=== PATIENT | female | born 1955 | race Caucasian/White ===

== ENCOUNTER 2017-03-01 13:59 | Emergency (ER) | payer BC, OTHER ==
--- NOTE | 2017-03-01 14:10 | Emergency Department Record ---
History of Present Illness - General Chief complaint: Rectal bleeding Stated complaint: RECTAL BLEEDING Time Seen by Provider: 03/01/17 14:02 Source: Patient, Family Mode of Arrival: Ambulatory Limitations: No limitations - History of Present Illness Initial comments: 61 yo female presents with a concern about blood in her stools the last 2 days in the morning. Each morning there has been blood after a bowel movement. She fevers, vomiting or pain. No blood thinners. No history of known GI bleed in the past. No nausea or vomiting. Her last colonoscopy was during her mid 50's and was "yvonne" per the patient. She spoke with the on air announcer GI doctor for Dr Mathur and was directed to the ED to have her Hgb checked. Improves with: None Worsens with: None Context: Other Associated Symptoms: Denies other symptoms - Related Data Home Medications Medication Instructions Recorded Confirmed Last Taken Meloxicam [Meloxicam] 7.5 mg PO DAILY 03/01/17 03/01/17 03/01/17 Allergies Allergy/AdvReac Type Severity Reaction Status Date / Time tetracycline AdvReac VOMITING Verified 03/01/17 14:03 Review of Systems Constitutional: Denies: Chills, Fever, Malaise, Weakness Eyes: Denies: Eye discharge, Eye pain, Photophobia, Vision change ENT: Denies: Congestion, Throat pain Respiratory: Denies: Cough, Dyspnea, Hemoptysis, Stridor, Wheezes Cardiovascular: Denies: Chest pain Endocrine: Denies: Fatigue Gastrointestinal: Reports: Hematochezia. Denies: Abdominal pain, Constipation, Diarrhea, Hematemesis, Melena, Nausea, Vomiting Genitourinary: Denies: Dysuria, Urgency Musculoskeletal: Denies: Arthralgia, Back pain, Myalgia, Neck pain Skin: Denies: Bruising, Change in color, Pruritus Neurological: Denies: Headache, Numbness, Weakness Psychiatric: Denies: Anxiety Hematological/Lymphatic: Denies: Blood Clots, Easy bleeding, Easy bruising, Swollen glands Past Medical History - SOCIAL HISTORY Smoking Status: Former smoker Drug Use: None - RESPIRATORY Hx Respiratory Disorders: No - CARDIOVASCULAR Hx Cardio Disorders: Yes Hx Abnormal EKG: Yes (LBB) Hx Hypertension: Yes - NEURO Hx Neuro Disorders: No - GI Hx GI Disorders: Yes Hx Reflux: Yes - Hx Genitourinary Disorders: No - ENDOCRINE Hx Endocrine Disorders: Yes Hx Diabetes: No Hx Thyroid Disease: Yes - MUSCULOSKELETAL Hx Musculoskeletal Disorders: No - PSYCH Hx Psych Problems: No - HEMATOLOGY/ONCOLOGY Hx Hematology/Oncology Disorders: No Physical Exam - General General Appearance: Alert, Oriented x3, Cooperative, No acute distress Limitations: No limitations - Head Head exam: Normal inspection - Eye Eye exam: Normal appearance, PERRL. negative: Conjunctival injection, Periorbital swelling, Scleral icterus - ENT ENT exam: Normal exam, Mucous membranes moist Ear exam: Normal external inspection Nasal Exam: Normal inspection Mouth exam: Normal external inspection - Neck Neck exam: Normal inspection - Respiratory Respiratory exam: Normal lung sounds bilaterally. negative: Respiratory distress - Cardiovascular Cardiovascular Exam: Regular rate, Normal rhythm, Normal heart sounds - GI/Abdominal GI/Abdominal exam: Soft. negative: Tenderness - Rectal Rectal exam: Heme (-) stool, Hemorrhoids, Normal rectal tone, Other (Heme Negative). negative: Black stool, Bloody stool, Decreased rectal tone, Fecal impaction, Heme (+) stool, Mass, Normal inspection, Tenderness - Extremities Extremities exam: Normal inspection, Full ROM, Normal capillary refill. negative: Pedal edema, Tenderness - Back Back exam: Reports: Normal inspection, Full ROM. Denies: Muscle spasm, Rash noted, Tenderness - Neurological Neurological exam: Alert, Normal gait, Oriented X3 - Psychiatric Psychiatric exam: Normal affect, Normal mood - Skin Skin exam: Dry, Intact, Normal color, Warm Course - Reevaluation(s) Reevaluation #1: The Hgb was 14.1 The rectal examination was performed with the MA present No gross blood on examination The test was negative for occult blood with a positive control on the card She did have a small hemorrhoid or redundant tissue on the rectal that was non tender non inflamed. 03/01/17 14:48 03/01/17 14:49 Medical Decision Making - Lab Data Result diagrams: 03/01/17 14:20 03/01/17 14:20 Disposition Disposition: Discharge Clinical Impression: Lower GI bleed Disposition: Home, Self-Care Condition: (1) Good Instructions: Rectal Bleeding (ED) Additional Instructions: Call your doctor for close follow up this week Call Dr Mathur for close follow up prior to your travel Return if you have pain, fever, or any new concerns. Forms: Patient Portal Access Time of Disposition: 14:51 Quality - Quality Measures Quality Measures: N/A - Blood Pressure Screening Does Patient Have Any of the Following: No Blood Pressure Classification: Pre-Hypertensive BP Reading Systolic Measurement: 133 Diastolic Measurement: 88 Screening for High Blood Pressure: < Pre-Hypertensive BP, F/U Documented > [ [id number]] Pre-Hypertensive Follow-up Interventions: Referral to alternative/primary care provider.
[2017-03-01 14:34] LABS: BASO % 0.2 % (0-6); EOS % 1.2 % (0-6); GRAN % 63.7 % (47-80); HEMATOCRIT 44.6 % (35.0-47.0); HEMOGLOBIN 14.1 gm/dl (11.6-16.0); LYMPH % 27.1 % (16-45); MEAN CELL VOLUME 86.3 fl (81-97); MEAN CORPUSCULAR HEMOGLOBIN 27.3 pg (27-33); MEAN CORPUSCULAR HGB CONC 31.6 g/dl (32-36); MEAN PLATELET VOLUME 10.3 fl (7.4-10.4); MONO % 7.8 % (0-9); PLATELET COUNT 337 K/uL (130-400); RED BLOOD COUNT 5.17 M/uL (3.80-5.40); RED CELL DISTRIBUTION WIDTH 13.7 % (11.5-14.5); WHITE BLOOD COUNT W/O DIFF 10.3 K/uL (4.2-12.2)
[2017-03-01 14:47] LABS: INR 1.03; PARTIAL THROMBOPLASTIN TIME 27.3 SECONDS (24.5-39.1); PROTHROMBIN TIME (PATIENT) 11.1 SECONDS (9.5-12.1)
[2017-03-01 14:48] LABS: TOTAL PROTEIN 8.3 g/dL (6.6-8.7)
[2017-03-01 14:51] LABS: GLUCOSE,RANDOM 92 mg/dL (74-109)
[2017-03-01 14:53] LABS: ALB/GLOB RATIO 1.1 (1.1-1.8); ALBUMIN 4.4 g/dL (4.0-5.0); ALKALINE PHOSPHATASE 104 U/L (35-104); ALT/SGPT 18 U/L (<33); AST/SGOT 21 U/L (10.0-35.0)
[2017-03-01 14:55] LABS: BLOOD UREA NITROGEN 13 mg/dL (8-23); CREATININE 0.7 mg/dL (0.5-0.9); EST GLOMERULAR FILTRATION RATE > 60 mL/min
== END 2017-03-01 15:08 | disposition home or self-care (01) ==
LOC: ER 13:59
DX: K92.2 Gastrointestinal hemorrhage, unspecified (principal)
CPT/HCPCS: 80053; 85025; 85610; 85730; 99283

== ENCOUNTER 2018-10-07 14:10 | Emergency (ER) | payer BC, OTHER ==
[2018-10-07] MEDS ORDERED: ACETAMINOPHEN 500 MG TABLET PO ONE (14:17)
[2018-10-07] MEDS ORDERED: 0.9 % SODIUM CHLORIDE 1,000 ML BAG IV ONE (14:17)
[2018-10-07] MEDS ORDERED: IPRATROPIUM/ALBUTEROL (0.5MG/3MG) NEB INH ONE (14:18)
--- NOTE | 2018-10-07 14:22 | Emergency Department Record ---
History of Present Illness - General Chief complaint: ENT Stated complaint: WEAK,CHEST CONJ,SORE THROAT Time Seen by Provider: 10/07/18 14:12 Source: Patient, Family Mode of Arrival: Ambulatory Limitations: No limitations - History of Present Illness Initial comments: 63 yo female presents with congestion, cough, sore throat, mildly productive sputum with subjective fevers. She states the symptoms started yesterday. She is not a smoker. She did return from a cruise to [place]. Her has similar symptoms. No rash. No nausea, vomiting or diarrhea. She did not take anything for fever prior to arrival. No leg pain or swelling. 97% on room air on arrival. MD complaint: Sore throat, Other (Cough) -: Days(s) (2) Location: Throat, Other Severity: Moderate Quality: Aching Consistency: Constant Improves with: None Worsens with: Other (Coughing) Associated Symptoms: Cough, Fever, Rhinorrhea, Sore throat - Related Data Home Medications Medication Instructions Recorded Confirmed Last Taken Metoprolol Succinate 50 mg PO DAILY 10/07/18 10/07/18 1 Day Ago ~10/06/18 Previous Rx's Medication Instructions Recorded Azithromycin [Zithromax] 250 mg PO DAILY #4 tab 10/07/18 Oseltamivir Phosphate [Tamiflu] 75 mg PO BID #10 capsule 10/07/18 Allergies Allergy/AdvReac Type Severity Reaction Status Date / Time No Known Drug Allergies Allergy Verified 10/07/18 14:26 Review of Systems Constitutional: Reports: Chills, Fever. Denies: Weakness Eyes: Denies: Eye discharge ENT: Reports: Congestion, Throat pain. Denies: Ear pain, Epistaxis Respiratory: Reports: Cough, Wheezes. Denies: Dyspnea, Hemoptysis Cardiovascular: Denies: Chest pain, Palpitations, Syncope Endocrine: Denies: Fatigue, Polydipsia, Polyuria Gastrointestinal: Denies: Abdominal pain, Diarrhea, Nausea, Vomiting Genitourinary: Denies: Dysuria, Urgency Musculoskeletal: Denies: Arthralgia, Back pain, Myalgia Skin: Denies: Bruising, Change in color, Rash Neurological: Reports: Headache. Denies: Numbness, Weakness Psychiatric: Denies: Anxiety Hematological/Lymphatic: Denies: Easy bleeding, Easy bruising Past Medical History - SOCIAL HISTORY Smoking Status: Former smoker Drug Use: None - RESPIRATORY Hx Respiratory Disorders: No - CARDIOVASCULAR Hx Cardio Disorders: Yes Hx Abnormal EKG: Yes (LBB) Hx Hypertension: Yes - NEURO Hx Neuro Disorders: No - GI Hx GI Disorders: Yes Hx Reflux: Yes - Hx Genitourinary Disorders: No - ENDOCRINE Hx Endocrine Disorders: Yes Hx Diabetes: No Hx Thyroid Disease: Yes - MUSCULOSKELETAL Hx Musculoskeletal Disorders: No - PSYCH Hx Psych Problems: No - HEMATOLOGY/ONCOLOGY Hx Hematology/Oncology Disorders: No Physical Exam - General General Appearance: Alert, Oriented x3, Cooperative, No acute distress Limitations: No limitations - Head Head exam: Atraumatic, Normal inspection - Eye Eye exam: Normal appearance, PERRL. negative: Conjunctival injection, Scleral icterus - ENT ENT exam: Normal exam, Mucous membranes moist Ear exam: Normal external inspection Nasal Exam: Discharge (Mild clear) Mouth exam: Normal external inspection Teeth exam: Normal inspection Throat exam: Normal inspection. negative: Tonsillomegaly, Tonsillar exudate, R peritonsillar mass, L peritonsillar mass - Neck Neck exam: Normal inspection. negative: Lymphadenopathy, Meningismus, Tenderness - Respiratory Respiratory exam: Decreased breath sounds, Wheezes (mild faint expiratory). negative: Accessory muscle use, Chest wall tenderness, Prolonged expiratory, Respiratory distress - Cardiovascular Cardiovascular Exam: Regular rate, Normal rhythm, Normal heart sounds - GI/Abdominal GI/Abdominal exam: Soft. negative: Tenderness - Rectal Rectal exam: Deferred - exam: Deferred - Extremities Extremities exam: Normal inspection. negative: Calf tenderness, Pedal edema, Tenderness - Back Back exam: Denies: CVA tenderness (R), CVA tenderness (L), Rash noted - Neurological Neurological exam: Alert, Oriented X3 - Psychiatric Psychiatric exam: Normal affect, Normal mood - Skin Skin exam: Dry, Intact, Normal color, Warm Course - Reevaluation(s) Reevaluation #1: 10/07/18 15:11 The CBC is normal on examination. 10/07/18 15:12 Temperature decreased to 101.9 10/07/18 15:16 CXR with subtle RLL infiltrate may represent early pneumonia 10/07/18 15:26 The patients tested positive for Influenza A. She will be treated as well as for the infiltrate She is not short of breath, no vomiting, normal oxygen saturations. She is a good outpatient candidate for treatment. 07/04/19 15:33 BMP is normal Medical Decision Making - Lab Data Result diagrams: 10/07/18 14:25 10/07/18 14:25 Disposition Disposition: Discharge Clinical Impression: Influenza A Pneumonia Qualifiers: Pneumonia type: due to unspecified organism Laterality: right Lung location: lower lobe of lung Qualified Code(s): J18.1 - Lobar pneumonia, unspecified organism Disposition: Home, Self-Care Condition: (1) Good Instructions: Influenza (ED), Pneumonia (ED) Additional Instructions: Call your doctor for the next available follow up appointment Review this ER visit and the tests performed with your family doctor Return to the ER for a recheck if worse, any new concerns or questions Take the prescriptions provided as directed Prescriptions: Oseltamivir Phosphate [Tamiflu] 75 mg PO BID #10 capsule Azithromycin [Zithromax] 250 mg PO DAILY #4 tab Forms: Patient Portal Access Time of Disposition: 15:28 Quality - Quality Measures Quality Measures: N/A - Blood Pressure Screening Does Patient Have Any of the Following: No Blood Pressure Classification: Pre-Hypertensive BP Reading Systolic Measurement: 108 Diastolic Measurement: 87 Screening for High Blood Pressure: < Pre-Hypertensive BP, F/U Documented > [G8950] Pre-Hypertensive Follow-up Interventions: Referral to alternative/primary care provider.
[2018-10-07 14:54] LABS: ABSOLUTE NEUTROPHIL COUNT 4.91; BASO % 0.2 % (0-6); EOS % 0.9 % (0-6); GRAN % 76.1 % (47-80); HEMATOCRIT 37.8 % (35.0-47.0); HEMOGLOBIN 11.6 gm/dl (11.6-16.0); LYMPH % 12.1 % (16-45); MEAN CELL VOLUME 86.1 fl (81-97); MEAN CORPUSCULAR HEMOGLOBIN 26.4 pg (27-33); MEAN CORPUSCULAR HGB CONC 30.7 g/dl (32-36); MEAN PLATELET VOLUME 10.3 fl (7.4-10.4); MONO % 10.7 % (0-9); PLATELET COUNT 228 K/uL (130-400); RED BLOOD COUNT 4.39 M/uL (3.80-5.40); WHITE BLOOD COUNT W/O DIFF 6.5 K/uL (4.2-12.2)
[2018-10-07 15:06] LABS: BLOOD UREA NITROGEN 15 mg/dL (8-23); CREATININE 0.7 mg/dL (0.5-0.9); EST GLOMERULAR FILTRATION RATE > 60 mL/min
[2018-10-07 15:09] LABS: GLUCOSE,RANDOM 94 mg/dL (74-109)
[2018-10-07 15:14] LABS: INFLUENZA A NEGATIVE (NEGATIVE); INFLUENZA B NEGATIVE (NEGATIVE)
[2018-10-07] MEDS ORDERED: CEFTRIAXONE 1GM/50ML BAG 1 GM/50 ML BAG IVPB ONE (15:14)
[2018-10-07] MEDS ORDERED: AZITHROMYCIN 500 MG TABLET PO ONE (15:14)
[2018-10-07] MEDS ORDERED: OSTELTAMIVIR 75 MG CAP PO ONE ×2 (15:26→16:35)
== END 2018-10-07 16:10 | disposition home or self-care (01) ==
LOC: ER 14:10
DX: J10.08 Influenza due to other identified influenza virus with other specified pneumonia (principal); J18.1 Lobar pneumonia, unspecified organism; R53.1 Weakness; I10 Essential (primary) hypertension; Z87.891 Personal history of nicotine dependence
CPT/HCPCS: 71046; 80048; 85025; 87400; 94640; 96365; 99284; J0696; J7030